=== PATIENT | male | born 1995 | race Caucasian/White ===

== ENCOUNTER 2018-11-02 20:52 | Emergency (ER) | payer OTHER ==
[2018-11-02 20:57] VITALS: BP 161/101; TEMP 98; BMI 44.2
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
[2018-11-02] MEDS ORDERED: NORCO 7.5-325 PO STA (21:33)
== END 2018-11-02 22:05 | disposition home or self-care (01) ==
LOC: ED 20:52
DX: R07.89 Other chest pain (principal); S10.93XA Contusion of unspecified part of neck, initial encounter; Y04.2XXA Assault by strike against or bumped into by another person, initial encounter; Y99.0 Civilian activity done for income or pay; Y92.149 Unspecified place in prison as the place of occurrence of the external cause
CPT/HCPCS: 99283

== ENCOUNTER 2019-05-26 08:12 | Outpatient (CLI) | END 2019-05-26 08:13 | disposition home or self-care (01) | LOC: LAB 08:12 | PROVIDERS: ATTEND Family Medicine | DX: E55.9 Vitamin D deficiency, unspecified (principal); R53.83 Other fatigue; E66.9 Obesity, unspecified; I10 Essential (primary) hypertension; N52.9 Male erectile dysfunction, unspecified; Z13.220 Encounter for screening for lipoid disorders | CPT/HCPCS: 36415; 80053; 80061; 82306; 82533; 82607; 84402; 84403; 84439; 84443; 84481; 85025; 85027 ==

== ENCOUNTER 2019-06-04 08:09 | Outpatient (CLI) | END 2019-06-04 08:10 | disposition home or self-care (01) | LOC: LAB 08:09 | PROVIDERS: ATTEND Family Medicine | DX: E29.1 Testicular hypofunction (principal) | CPT/HCPCS: 36415; 82670; 83001; 83615; 84403; 84439 ==